=== PATIENT | male | born 1965 | race Caucasian/White ===

== ENCOUNTER 2017-01-05 13:00 | Inpatient (IN) | payer OTHER ==
[~2017-01-05] VITALS: Ht 195.6 cm; Wt 152.7 kg
--- NOTE | ~2017-01-05 | CON ---
PATIENT'S NAME: [facility] AGE: 51 Y [address] ROOM: [place] [address] LOCATION: [facility] ADMIT DATE: 01/18/2017 Consultation DISCHARGE DATE: FAMILY PHYSICIAN: Marcelo Yeh MD ATTENDING PHYSICIAN: KYREE HEWITT DATE OF CONSULTATION: 01/18/2017 REFERRING PHYSICIAN: Kyree Hewitt MD REASON FOR CONSULTATION: Medical management. HISTORY OF PRESENT ILLNESS: The patient is a 51-year-old male, postop day 0, for a left total knee arthroplasty. At this point, the patient is resting in bed, not on any oxygen, and reports no pain and feels well. He has no other complaints. REVIEW OF SYSTEMS: All systems have been reviewed and negative aside from pertinent positives mentioned above. PAST MEDICAL HISTORY: As reported by the patient is, 1. Questionable GERD. 2. Essential hypertension. 3. Morbid obesity should be noted due to his BMI of 42. SURGICAL HISTORY: Significant for history of endoscopy. FAMILY HISTORY: Reviewed and is noncontributory due to his known reason for being in the hospital. SOCIAL HISTORY: Negative for any toxic habits. HOME MEDICATIONS: 1. Pantoprazole. 2. Multivitamin. 3. Meloxicam. 4. Losartan. PHYSICAL EXAMINATION: VITAL SIGNS: Temperature 97.6, pulse 58, respirations 16, blood pressure PATIENT'S NAME: [facility] AGE: 51 Y [address] ROOM: [place] [address] LOCATION: [facility] ADMIT DATE: 01/18/2017 Consultation DISCHARGE DATE: FAMILY PHYSICIAN: Marcelo Yeh MD ATTENDING PHYSICIAN: KYREE HEWITT 126/74, and saturating 94% on room air. GENERAL: Well-developed, well-nourished, middle-aged male, in no acute distress. NEUROLOGICAL: Exam is nonfocal. EYES: Pupils and equal and reactive to light. LYMPHATIC: No cervical lymphadenopathy. ENDOCRINE: No thyromegaly. LUNGS: Clear to auscultation. HEART: Rate is regular. No appreciable murmurs, gallops, or rubs. ABDOMEN: Soft, nontender, and nondistended. : No costovertebral angle tenderness. VASCULAR: 2+ pedal pulses. MUSCULOSKELETAL: Deferred. DIAGNOSTIC DATA: No studies are available as of today. IMPRESSION AND RECOMMENDATIONS: This is a healthy 51-year-old male, postop day 0 for a left total knee arthroplasty. Pain control has been ordered by Primary Service. Bowel regimen has been ordered by Primary Service. Essential hypertension. His losartan has been continued. We will help manage this patient's inpatient stay. Thank you for allowing us to participate in the care of this gentleman. Time dedicated to this patient's encounter is 15 minutes. MD ANATOLY GEE/samuel /[id number] d: 01/19/177 t: 01/22/17 2323, CONSULTATION REPORT
--- NOTE | ~2017-01-05 | DS ---
PATIENT'S NAME: YOSELIN PERALES [facility] AGE: 51 Y [address] ROOM: [place] [address] LOCATION: [facility] ADMIT DATE: 01/18/2017 Discharge Summary DISCHARGE DATE: 01/20/2017 FAMILY PHYSICIAN: Marcelo Yeh MD ATTENDING PHYSICIAN: Kyree Santiago PRIMARY DIAGNOSIS: Osteoarthritis, left hip. SECONDARY DIAGNOSES: 1. Hypertension. 2. Gastroesophageal reflux disease. 3. Obesity with a BMI of 42. PROCEDURE PERFORMED: Left total hip arthroplasty. HISTORY: The patient is a 51-year-old male, who presents with advanced left hip degenerative joint disease and associated severely compromised activities of daily living. The patient has decided to proceed with total left hip arthroplasty after having been thoroughly counseled regarding the risks, benefits, limitations, and alternatives. Please refer to the outpatient clinic notes and admission history and physical for this patient. HOSPITAL COURSE: The patient underwent a total left hip arthroplasty on 01/18/2017 without complications. Spinal anesthesia was utilized. The patient received 24 hours of perioperative prophylactic antibiotics and remained hemodynamically stable, neurovascularly intact throughout the entire hospital course. The postoperative prophylactic deep venous thrombosis prophylaxis consisted of Xarelto, early mobilization and pneumatic compression devices. Daily physical therapy for gait training, transfer training, and reinforcement of hip dislocation precautions were received. The patient progressed well in physical therapy. On the date of discharge, 01/20/2017, the incision at the hip was healing well and showed no signs of infection. DISPOSITION: Home. DISCHARGE ACTIVITY: The patient is to bear weight as tolerated with strict hip dislocation precautions as instructed. There are to be no dressing changes. Dr. Santiago is to be notified immediately if there is any increased pain, fevers, chills, erythema, or drainage. DISCHARGE MEDICATIONS: 1. Xarelto 10 mg 1 tablet p.o. daily for 12 days for postoperative DVT prophylaxis. 2. Gabapentin 300 mg 1 tablet p.o. b.i.d. for 7 days for pain. 3. Hydromorphone 2 mg 1 to 2 tablets p.o. every 4 hours p.r.n. for pain. PATIENT'S NAME: YOSELIN PERALES [facility] AGE: 51 Y [address] ROOM: [place] [address] LOCATION: [facility] ADMIT DATE: 01/18/2017 Discharge Summary DISCHARGE DATE: 01/20/2017 FAMILY PHYSICIAN: Marcelo Yeh MD ATTENDING PHYSICIAN: Kyree Santiago 4. Diazepam 5 mg 1/2 to 1 tablet p.o. every 6 hours p.r.n. for muscle spasms. He was then instructed to continue all his other pre-admission medications as instructed by his Internal Medicine doctor. FOLLOWUP: Followup appointment is to be with Dr. Santiago's office on 01/25/2017 for his initial postoperative evaluation. SONIA ZAYAS PA-C FOR KYREE SANTIAGO MD SMW/naomyl /[id number] d: 01/26/17 0528 t: 01/27/17 1344, DISCHARGE SUMMARY
--- NOTE | ~2017-01-05 | OR ---
[facility] AGE: 51 Y [address] ROOM: [address] [place], [place] [address] LOCATION: [facility] ADMIT DATE: 01/18/2017 OR/Procedure Report DISCHARGE DATE: FAMILY PHYSICIAN: Marcelo Yeh MD ATTENDING PHYSICIAN: KYREE SANTIAGO SURGEON: Kyree Santiago MD STEAM CONDITIONING OPERATOR: Ankit Ovalle PA-C and Wili Garvey CST/BAR TACKER SEWING MACHINE. DATE OF PROCEDURE: 01/18/2017 PRE-OP DIAGNOSIS: Primary osteoarthritis, left hip. POST-OP DIAGNOSIS: Primary osteoarthritis, left hip. OPERATION: Left total hip arthroplasty. ANESTHESIA: Spinal anesthesia. ESTIMATED BLOOD LOSS: Approximately 250 mL. DRAIN: None. SPECIMEN: None. COMPLICATIONS: None. IMPLANTS: 1. Blanding Trident Tritanium, size 60 mm, hemispherical, uncemented acetabular shell. 2. 36 mm inner diameter Blanding X3 neutral acetabular polyethylene liner. 3. Blanding Accolade II, size 10, standard offset, uncemented femoral component. 4. Biolox 36 mm diameter femoral head with -5 mm neck length. INDICATION FOR SURGERY: Yoselin Del Toro is a 51-year-old male who presents with advanced left hip primary osteoarthritis and associated severely compromised activities of daily living. The patient has decided to proceed with hip replacement after having been thoroughly counseled regarding the associated risks, benefits, and limitations. We have specifically reviewed the risks and implications of infection, deep venous thrombosis, pulmonary embolism, mortality, neurovascular complications, blood transfusion (and associated potential for disease transmission or transfusion reaction), stiffness, instability, leg length discrepancy, mechanical deterioration of the components (due to wear and to loosening), and the potential need for revision. PATIENT'S NAME: [facility] AGE: 51 Y [address] ROOM: [address] [address] LOCATION: [facility] ADMIT DATE: 01/18/2017 OR/Procedure Report DISCHARGE DATE: FAMILY PHYSICIAN: Macrelo Yeh MD ATTENDING PHYSICIAN: KYREE SANTIAGO DESCRIPTION OF PROCEDURE: The patient was positioned in a lateral decubitus position with the left side up after administration of anesthesia and prophylactic antibiotics. An axillary roll was placed and the non-operative leg was well padded. The pelvis was locked perpendicularly to the floor on a pegboard. The left hip and entire operative extremity were prepped and draped with vigilant sterile technique. The patient's name as well as the intended operative side and procedure were confirmed with a verbal time-out involving myself, the circulating nurse, the scrub nurse, and the anesthesiologist. The left hip was approached through a standard posterolateral incision. The fascia chely and the gluteus juliette fascia were sharply divided in line with the overlying skin incision. The sciatic nerve was identified and was vigilantly protected throughout the entire case. The short external rotators and posterior capsule were divided from their respective femoral insertions and tagged with four #1 Ethibond sutures for later repair. The hip was posteriorly dislocated with combined flexion, adduction, and internal rotation. The femoral neck osteotomy was performed with an oscillating saw. Inspection of the femoral head demonstrated full-thickness loss of articular cartilage throughout the majority of its weightbearing surface. There was a very large osteophyte at the anterior margin of the femoral head - neck junction. There was no femoral head collapse. Circumferential acetabular exposure was obtained. Inspection of the acetabulum demonstrated a hypertrophic labrum. There was a large effusion consisting of benign-appearing translucent synovial fluid. There was a large medial acetabular osteophyte. There was a small anterior acetabular osteophyte. There was no dysplasia. There was full-thickness loss of articular cartilage throughout the majority of the acetabular dome. Remnants of the acetabular labrum were sharply thoroughly excised. The acetabulum was sequentially progressively reamed up to 59 mm with hemispherical power reamers. The final acetabular shell was impacted into position in 20 degrees of anteversion and 45 degrees of inclination. An excellent press-fit was obtained. No supplemental dome screw fixation was necessary. A neutral trial liner was inserted. Attention was next focused upon femoral preparation. The femoral canal initiator was utilized. No reaming was performed (except for with a canal finder). The femoral canal was subsequently sequentially progressively broached up to a size 10. The size 10 broach obtained excellent axial and rotational stability. Trial reductions with the above specified construct yielded acceptable stability and acceptable reproduction of leg length and PATIENT'S NAME: YOSELIN DEL TORO [facility] AGE: 51 Y [address] ROOM: [place] [address] LOCATION: [facility] ADMIT DATE: 01/18/2017 OR/Procedure Report DISCHARGE DATE: FAMILY PHYSICIAN: Marcelo Yeh MD ATTENDING PHYSICIAN: KYREE SANTIAGO. All trial components were removed. The final acetabular liner was inserted with excellent circumferential visualization of its locking mechanism to assure adequate deployment. The final femoral component was impacted into position. The femoral component achieved excellent axial and rotational stability. The trunnion of the femoral component was vigilantly protected prior to placement of the femoral head. The trunnion of the femoral component was thoroughly cleaned and dried prior to placement of the femoral head. The incision was thoroughly irrigated with bacteriostatic pulsatile saline lavage multiple times throughout the case. The entire joint space was thoroughly inspected and thoroughly irrigated to assure that there was no residual debris of any sort. A final reduction was then performed. After final reduction, the hip could be firmly externally rotated in full extension and zero degrees of abduction without anterior subluxation. In neutral rotation and zero degrees of abduction, the hip could be firmly flexed to 120 degrees without instability. At 90 degrees of flexion and zero degrees abduction, the hip could be internally rotated to 50 degrees before there was any hint of posterior subluxation. The posterior capsule and short external rotators were repaired through two drill holes in the posterior aspect of the greater trochanter. The fascia chely and gluteus juliette fascia were closed with multiple simple and [id number] interrupted # 1 Ethibond and #1 Vicryl sutures. Subcutaneous tissues were thoroughly re-irrigated with bacteriostatic pulsatile saline lavage. Subcutaneous tissues were re-approximated with simple buried interrupted #0 Vicryl sutures. The skin was closed with superficial buried interrupted 2-0 Vicryl sutures followed by a running subcuticular 3-0 Monocryl suture, followed by Octylseal, followed by Steri- Strips with benzoin, followed by an occlusive Mepilex dressing. There were no intra-operative complications. It should be noted that the physician's assistant manager/embalmer played an active, integral role throughout this entire operation. By providing expert retraction, they greatly facilitated and expedited safe and effective exposure of the proximal femur and acetabulum for preparation and implantation of the components. They were also actively involved in the patient's positioning, prepping and draping, as well as wound closure. [facility] AGE: 51 Y [address] ROOM: [address] [place], [place] [address] LOCATION: [facility] ADMIT DATE: 01/18/2017 OR/Procedure Report DISCHARGE DATE: FAMILY PHYSICIAN: Marcelo Yeh MD ATTENDING PHYSICIAN: KYREE SANTIAGO MD BROOKE CAVAZOS/samuel /[id number] d: 01/19/17 0727 t: 01/24/17 0104, OPERATIVE SUMMARY
[2017-01-05] MEDS ORDERED: MOBIC15 MG PO (15:20)
[2017-01-05] MEDS ORDERED: COZAAR100 MG PO (15:21)
[2017-01-05] MEDS ORDERED: PROTONIX40 MG PO (15:22)
[2017-01-05] MEDS ORDERED: THERAGRAN-M1 TAB PO (15:22)
--- NOTE | 2017-01-19 11:30 | NUR ---
Introduced self/role to patient, his Jeni and son. They live in [place]. 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 He denied any barriers to getting home or at home. Added my name to his marker board. He plans to go home tomorrow.
--- NOTE | 2017-01-19 18:12 | NUR ---
PATIENT UP TO CHAIR, TOLERATED ACTIVITY WELL. DILAUDID LAST AT 1750. TORADOL AT 1340. CSM ADEQUATE. MEPILEX DRESSING D/I, ICE TO HIP AREA. PATIENT PLANS ON DISMISSAL TOMORROW. LOOSE STOOLS TODAY.
--- NOTE | 2017-01-19 18:28 | NUR ---
Significant Event: Pt alert and oriented x3, continent of bowel and bladder, regular voids and BMs. Pt x1 assist with walker and gait belt. Bandages on L) hip clean and dry, not changed. Two loose BMs, reported by patient. Last pain pill was Dilaudid 2 mg at 1750. Last Toradol at 1340. Follow up: Maintain pain management. Fay DA SILVA
--- NOTE | 2017-01-20 03:46 | NUR ---
Significant Event: Alert and oriented X3. Vital signs stable. CSM WNL. Mepilex dressing to L) hip is CDI. Up to bathroom with 1 assist, gait belt and walker. Ice to hip. Dilaudid for pain last at 0300. Loose stools this shift. Colace held. IV SL'd. Follow up:
[2017-01-20] MEDS ORDERED: TYLENOL EXTRA500 MG PO (11:05)
[2017-01-20] MEDS ORDERED: COLACE100 MG PO (11:06)
[2017-01-20] MEDS ORDERED: NEURONTIN300 MG PO (11:07)
[2017-01-20] MEDS ORDERED: XARELTO10 MG PO (11:10)
[2017-01-20] MEDS ORDERED: VALIUM5 MG PO (11:11)
[2017-01-20] MEDS ORDERED: DILAUDID 2MG(HYD2 MG PO (11:13)
--- NOTE | 2017-01-20 15:21 | NUR ---
Significant Event: Patient dismissed to home with , dismissal instructions, RX slip, return appointment card, new meds reviewed, wound care, cathy hose, and hip dislocations reviewed. Transported to front door to meet .
--- NOTE | 2017-01-20 15:35 | NUR ---
i have reviewed the charting and assessments of SN Jesse and am in agreemtnf for this shift. patient dismissed to home, criter ia mmet to meet goals, rx slip, return appt card, new meds reviewed, cathy pierce, wound/dressing care, all reviewed with patient. patient and verbalize understanding. to front door to meet with transport.
== END 2017-01-20 13:45 | disposition disaster alternative care site (69) | DRG 470 ==
LOC: G3N 01-18 11:55
PROVIDERS: ADMIT Orthopaedic Surgery
PROC: 0SRB02A Replacement of Left Hip Joint with Metal on Polyethylene Synthetic Substitute, Uncemented, Open Approach (ICD-10-PCS; principal; 2017-01-19)
DX: M16.12 Unilateral primary osteoarthritis, left hip (principal); Z68.41 Body mass index [BMI] 40.0-44.9, adult; I10 Essential (primary) hypertension; K21.9 Gastro-esophageal reflux disease without esophagitis; E66.01 Morbid (severe) obesity due to excess calories
CPT/HCPCS: C1776; J0690; J1100; J1885; J2001; J2250; J2405; J2795; J7030; J7040; J7120

== ENCOUNTER → 2017-01-07 | Outpatient (CLI) | payer OTHER ==
[~2017-01-07] MED LIST: COLACE100 MG PO; COZAAR100 MG PO; DILAUDID 2MG(HYD2 MG PO; MOBIC15 MG PO; NEURONTIN300 MG PO; PROTONIX40 MG PO; THERAGRAN-M1 TAB PO; TYLENOL EXTRA500 MG PO; VALIUM5 MG PO; XARELTO10 MG PO
== END | disposition disaster alternative care site (69) ==
LOC: GNJRC 09:53
DX: Z01.812 Encounter for preprocedural laboratory examination (principal); M16.12 Unilateral primary osteoarthritis, left hip